=== PATIENT | male | born 1960 | race Caucasian/White ===

== ENCOUNTER 2016-07-24 20:22 | Inpatient (IN) | payer BC ==
[~2016-07-24] VITALS: Ht 190.5 cm; Wt 120.1 kg
[2016-07-24 21:30] LABS: HEMATOCRIT 38.4 % (38.0-50.0); MCH 29.4 PG (29.0-34.0); MCHC 34.1 G/DL (30.0-36.0); MCV 86.1 FL (86-99); MEAN PLAT.VOLUME 9.9 uM^3 (9.0-12.4); PLATELET COUNT 367 K/uL (156-360); RBC DIS.WIDTH-CV 13.8 % (11.8-14.6); RBC DIS.WIDTH-SD 42.6 % (39-53); RED BLOOD COUNT 4.46 M/uL (4.00-5.50); WHITE BLOOD COUNT 11.5 K/uL (4.1-10.2)
[2016-07-24 21:43] LABS: CHLORIDE 107 mEq/L (99-109); POTASSIUM 3.7 mEq/L (3.7-5.4); SODIUM 140 mEq/L (136-147)
[2016-07-24 21:45] LABS: GLUCOSE 155 mg/dL (70-99)
[2016-07-24 21:46] LABS: ANION GAP 11 MEQ/L (2-14)
[2016-07-24 21:49] LABS: GFR ESTIMATE (CALCULATED) > 59 mL/min/; UREA NITROGEN (BUN) 23 mg/dL (9-23)
[2016-07-24 21:52] LABS: TROP-I INTERPRETATION NEGATIVE; TROPONIN-I 0.28 ng/mL (0.0-0.30)
[2016-07-24] MEDS ORDERED: ALEVE220 MG PO (22:23)
[2016-07-24] MEDS ORDERED: GLIMEPIRIDE2 MG PO (22:23)
[2016-07-24] MEDS ORDERED: ATORVASTATIN CA20 MG PO (22:23)
[2016-07-24] MEDS ORDERED: LISINOPRIL20 MG PO (22:23)
[2016-07-24] MEDS ORDERED: METFORMIN HCL1000 MG PO (22:23)
[2016-07-24] MEDS ORDERED: PRILOSEC OTC20 MG PO (22:24)
[2016-07-24] MEDS ORDERED: CENTRUM SILVER1 EAC3 PO (22:24)
[2016-07-25 01:11] VITALS: BP 139/99
[2016-07-25 03:58] LABS: TROP-I INTERPRETATION NEGATIVE; TROPONIN-I 0.29 ng/mL (0.0-0.30)
[2016-07-25 04:44] VITALS: BP 133/78
[2016-07-25 10:04] LABS: TROP-I INTERPRETATION INDETERMINATE; TROPONIN-I 0.43 ng/mL (0.0-0.30)
[2016-07-25 14:54] LABS: POINT-OF-CARE METER ID UU13113819
[2016-07-25 16:47] VITALS: BP 147/86
[2016-07-25 19:26] VITALS: BP 140/87
[2016-07-25 23:19] VITALS: BP 148/88
[2016-07-26 03:29] VITALS: BP 136/96
[2016-07-26 07:30] VITALS: BP 145/93
[2016-07-26 08:21] LABS: HEMATOCRIT 40.7 % (38.0-50.0); MCH 29.9 PG (29.0-34.0); MCHC 34.4 G/DL (30.0-36.0); MEAN PLAT.VOLUME 10.3 uM^3 (9.0-12.4); PLATELET COUNT 338 K/uL (156-360); RBC DIS.WIDTH-CV 13.9 % (11.8-14.6); RBC DIS.WIDTH-SD 43.8 % (39-53); RED BLOOD COUNT 4.68 M/uL (4.00-5.50)
[2016-07-26 08:41] LABS: ANION GAP 9 MEQ/L (2-14); CHLORIDE 103 MEQ/L (99-109); POTASSIUM 4.4 MEQ/L (3.7-5.4); SAMPLE HEMOLYSIS CHECK 1; SAMPLE ICTERIC CHECK 0; SAMPLE LIPEMIA CHECK 0; SODIUM 140 MEQ/L (136-147)
[2016-07-26 08:47] LABS: GFR ESTIMATE (CALCULATED) > 59 mL/min/; UREA NITROGEN (BUN) 13 mg/dL (9-23)
[2016-07-26 08:50] LABS: GLUCOSE 108 mg/dL (70-99)
[2016-07-26] MEDS ORDERED: LOPRESSOR25 MG PO (09:18)
[2016-07-26] MEDS ORDERED: CLOPIDOGREL75 MG PO (09:18)
[2016-07-26] MEDS ORDERED: ASPIR 8181 M1 PO (09:19)
== END 2016-07-26 10:51 | disposition home or self-care (01) | DRG 247 ==
LOC: RME 20:22 → EME 20:22 → EDOF 22:41 → 5WEST 22:41 → EDOF 22:41 → 5WEST 23:25 → 4EAST 07-25 16:34
PROVIDERS: Internal Medicine; Physician Assistant; Physician Assistant Medical
DX: I21.4 Non-ST elevation (NSTEMI) myocardial infarction (principal); I25.10 Atherosclerotic heart disease of native coronary artery without angina pectoris; I10 Essential (primary) hypertension; E11.9 Type 2 diabetes mellitus without complications; E78.5 Hyperlipidemia, unspecified; E78.00 Pure hypercholesterolemia, unspecified; E66.9 Obesity, unspecified; Z68.32 Body mass index [BMI] 32.0-32.9, adult; F12.10 Cannabis abuse, uncomplicated; Z87.891 Personal history of nicotine dependence; Z85.820 Personal history of malignant melanoma of skin; Z85.07 Personal history of malignant neoplasm of pancreas; Z79.84 Long term (current) use of oral hypoglycemic drugs; Z98.890 Other specified postprocedural states
CPT/HCPCS: 71020; 80048; 82948; 84484; 85027; 85347; 93005; 93306; 99281; 99285; C1725; C1769; C1874; C1887; G0378; J1644; J1650; J1815; J2250; J3010; J3246; J7030; J7050

== ENCOUNTER 2017-08-26 19:42 | Inpatient (IN) | payer BC ==
[~2017-08-26] VITALS: Ht 190.5 cm; Wt 122.2 kg
[~2017-08-26 19:42] MED LIST: ALEVE220 MG PO; ASPIR 8181 M1 PO; ATORVASTATIN CA20 MG PO; CENTRUM SILVER1 EAC3 PO; CLOPIDOGREL75 MG PO; GLIMEPIRIDE2 MG PO; LISINOPRIL10 MG PO; LOPRESSOR25 MG PO; METFORMIN HCL1000 MG PO; PRILOSEC OTC20 MG PO
[2017-08-26 23:12] LABS: HEMATOCRIT 36.3 % (38.0-50.0); HEMOGLOBIN 12.3 G/DL (12.5-16.6); MCH 28.5 PG (29.0-34.0); MCHC 33.9 G/DL (30.0-36.0); MCV 84.2 FL (86-99); PLATELET COUNT 462 K/uL (156-360); RBC DIS.WIDTH-CV 13.8 % (11.8-14.6); RBC DIS.WIDTH-SD 42.8 % (39-53); RED BLOOD COUNT 4.31 M/uL (4.00-5.50); WHITE BLOOD COUNT 19.5 K/uL (4.1-10.2)
[2017-08-26 23:23] LABS: ALBUMIN 3.5 g/dL (3.2-4.8); CHLORIDE 96 mEq/L (99-109)
[2017-08-26 23:24] LABS: POTASSIUM 3.6 mEq/L (3.7-5.4); SODIUM 135 mEq/L (136-147)
[2017-08-26 23:26] LABS: GLUCOSE 182 mg/dL (70-99)
[2017-08-26 23:28] LABS: TOTAL BILIRUBIN 0.3 mg/dL (0.0-1.0)
[2017-08-26 23:29] LABS: ALKALINE PHOSPHATASE 164 IU/L (3-129); CREATININE 0.7 mg/dL (0.6-1.3); GFR ESTIMATE (CALCULATED) > 59 mL/min/ (58.99-99999)
[2017-08-26 23:31] LABS: AST (GOT) 34 IU/L (2-34); UREA NITROGEN (BUN) 14 mg/dL (9-23)
[2017-08-26 23:32] LABS: ALT (GPT) 70 IU/L (3-49)
[2017-08-26 23:33] LABS: LIPASE 64 U/L (1.0-51.0)
[2017-08-27] MEDS ORDERED: ADULT ASPIRIN R81 MG PO (01:48)
[2017-08-27] MEDS ORDERED: PLAVIX75 MG PO (01:48)
[2017-08-27 01:52] LABS: AMYLASE 46 IU/L (1-118)
[2017-08-27 03:16] VITALS: BP 139/87
[2017-08-27 07:43] VITALS: BP 139/90
[2017-08-27 09:37] LABS: HEMATOCRIT 35.5 % (38.0-50.0); HEMOGLOBIN 12.2 G/DL (12.5-16.6); MCH 28.8 PG (29.0-34.0); MCHC 34.4 G/DL (30.0-36.0); MCV 83.9 FL (86-99); PLATELET COUNT 404 K/uL (156-360); RED BLOOD COUNT 4.23 M/uL (4.00-5.50); WHITE BLOOD COUNT 19.3 K/uL (4.1-10.2)
[2017-08-27 09:38] LABS: HEMOGLOBIN A1c (GLYCOHEMOGLOB) 6.4 % (Below 5.7)
[2017-08-27 10:44] LABS: ALBUMIN 3.2 G/DL (3.2-4.8); ALKALINE PHOSPHATASE 125 IU/L (3-129); ALT (GPT) 47 IU/L (3-49); AST (GOT) 21 IU/L (2-34); CHLORIDE 101 MEQ/L (99-109); CREATININE 0.6 MG/DL (0.6-1.3); GFR ESTIMATE (CALCULATED) > 59 mL/min/ (58.99-99999); GLUCOSE 143 mg/dL (70-99); POTASSIUM 3.9 MEQ/L (3.7-5.4); SODIUM 138 MEQ/L (136-147); TOTAL BILIRUBIN 0.5 MG/DL (0.0-1.0); TOTAL PROTEIN 5.4 G/DL (6.4-8.3); UREA NITROGEN (BUN) 10 mg/dL (9-23)
[2017-08-27 11:48] VITALS: BP 139/89
[2017-08-27 15:19] VITALS: BP 141/88
[2017-08-27 20:15] VITALS: BP 156/88
[2017-08-28 00:42] VITALS: BP 146/83
[2017-08-28 06:04] LABS: HEMATOCRIT 35.8 % (38.0-50.0); HEMOGLOBIN 11.5 G/DL (12.5-16.6); MCH 27.5 PG (29.0-34.0); MCHC 32.1 G/DL (30.0-36.0); MCV 85.6 FL (86-99); PLATELET COUNT 458 K/uL (156-360); RBC DIS.WIDTH-CV 14.1 % (11.8-14.6); RED BLOOD COUNT 4.18 M/uL (4.00-5.50); WHITE BLOOD COUNT 18.7 K/uL (4.1-10.2)
[2017-08-28 06:12] LABS: CREATININE 0.8 MG/DL (0.6-1.3); GFR ESTIMATE (CALCULATED) > 59 mL/min/ (58.99-99999); UREA NITROGEN (BUN) 8 mg/dL (9-23)
[2017-08-28 06:14] LABS: ALBUMIN 3.3 G/DL (3.2-4.8); ALKALINE PHOSPHATASE 115 IU/L (3-129); ALT (GPT) 39 IU/L (3-49); AST (GOT) 16 IU/L (2-34); CHLORIDE 100 MEQ/L (99-109); CREATININE 0.8 MG/DL (0.6-1.3); GFR ESTIMATE (CALCULATED) > 59 mL/min/ (58.99-99999); GLUCOSE 150 mg/dL (70-99); POTASSIUM 3.9 MEQ/L (3.7-5.4); SODIUM 137 MEQ/L (136-147); TOTAL BILIRUBIN 0.5 MG/DL (0.0-1.0); UREA NITROGEN (BUN) 9 mg/dL (9-23)
[2017-08-28 06:20] LABS: TOTAL PROTEIN 6.3 G/DL (6.4-8.3)
[2017-08-28 09:09] VITALS: BP 180/93
[2017-08-28 09:22] VITALS: BP 168/62
[2017-08-28 15:26] LABS: APPEARANCE CLEAR ((CLEAR)); BILIRUBIN NEGATIVE; BLOOD MODERATE; COLOR YELLOW ((YELLOW)); GLUCOSE (STRIP) 50; KETONES NEGATIVE; LEUKOCYTES NEGATIVE; NITRITE NEGATIVE; PROTEIN (STRIP) NEGATIVE
[2017-08-28 15:31] LABS: BACTERIA RARE /HPF; EPITHELIAL CELLS NONE SEEN /HPF; MUCUS TRACE /LPF; WHITE BLOOD CELLS 0-5 /HPF (0-5)
[2017-08-28 15:33] VITALS: BP 162/99
[2017-08-28 15:36] VITALS: BP 164/78
[2017-08-28 23:15] VITALS: BP 124/84
[2017-08-29 06:10] LABS: HEMATOCRIT 36.3 % (38.0-50.0); MCH 28.2 PG (29.0-34.0); MCHC 33.1 G/DL (30.0-36.0); MCV 85.4 FL (86-99); PLATELET COUNT 485 K/uL (156-360); RBC DIS.WIDTH-CV 14.1 % (11.8-14.6); RBC DIS.WIDTH-SD 43.9 % (39-53); RED BLOOD COUNT 4.25 M/uL (4.00-5.50)
[2017-08-29 06:37] LABS: ALBUMIN 3.3 G/DL (3.2-4.8); ALKALINE PHOSPHATASE 129 IU/L (3-129); ALT (GPT) 42 IU/L (3-49); AST (GOT) 19 IU/L (2-34); CHLORIDE 101 MEQ/L (99-109); CREATININE 0.7 MG/DL (0.6-1.3); GFR ESTIMATE (CALCULATED) > 59 mL/min/ (58.99-99999); GLUCOSE 165 mg/dL (70-99); IRON 34 MCG/DL (35-150); POTASSIUM 4.2 MEQ/L (3.7-5.4); SODIUM 139 MEQ/L (136-147); TOTAL BILIRUBIN 0.4 MG/DL (0.0-1.0); TOTAL PROTEIN 5.9 G/DL (6.4-8.3); TRANSFERRIN (TIBC) 206.5 mg/dL (215-380); TRANSFERRIN SATUR. 16 % (20-55); UREA NITROGEN (BUN) 8 mg/dL (9-23)
[2017-08-29 08:17] VITALS: BP 153/97
[2017-08-29] MEDS ORDERED: FERROUS SULFAT325 MG PO (08:36)
== END 2017-08-29 10:43 | disposition home or self-care (01) | DRG 440 ==
LOC: EME 19:42 → EDOF 08-27 01:10 → 3EAST 08-27 01:10 → ENRESERV 08-27 01:15 → 3EAST 08-27 02:40
PROVIDERS: Hospitalist; Internal Medicine; Nurse Practitioner Family; Physician Assistant
DX: K85.90 Acute pancreatitis without necrosis or infection, unspecified (principal); K86.9 Disease of pancreas, unspecified; E11.9 Type 2 diabetes mellitus without complications; I10 Essential (primary) hypertension; I25.10 Atherosclerotic heart disease of native coronary artery without angina pectoris; E78.5 Hyperlipidemia, unspecified; D50.9 Iron deficiency anemia, unspecified; K21.9 Gastro-esophageal reflux disease without esophagitis; F17.200 Nicotine dependence, unspecified, uncomplicated; E66.9 Obesity, unspecified; Z68.33 Body mass index [BMI] 33.0-33.9, adult; Z79.84 Long term (current) use of oral hypoglycemic drugs; Z79.82 Long term (current) use of aspirin; Z79.02 Long term (current) use of antithrombotics/antiplatelets; Z95.5 Presence of coronary angioplasty implant and graft; Z85.07 Personal history of malignant neoplasm of pancreas; Z85.820 Personal history of malignant melanoma of skin
CPT/HCPCS: 71046; 74177; 74183; 76705; 80053; 81003; 82150; 82272; 82565; 82948; 83036; 83540; 83690; 84466; 84520; 85027; 99281; 99284; J2270; J2405; J3010; J7030

== ENCOUNTER → 2017-09-24 | Outpatient (CLI) | payer BC ==
[~2017-09-24] VITALS: Ht 190.5 cm; Wt 117.9 kg
[~2017-09-24] MED LIST changes: +ADULT ASPIRIN R81 MG PO; +FEOSOL325 MG PO; +FERROUS SULFAT325 MG PO; +PLAVIX75 MG PO
== END | disposition home or self-care (01) ==
LOC: AMB 10:21
PROVIDERS: Internal Medicine Gastroenterology
PROC: 0FBG8ZX Excision of Pancreas, Via Natural or Artificial Opening Endoscopic, Diagnostic (ICD-10-PCS; principal; 2017-09-24)
DX: K86.9 Disease of pancreas, unspecified (principal); C43.9 Malignant melanoma of skin, unspecified; I25.118 Atherosclerotic heart disease of native coronary artery with other forms of angina pectoris; E11.9 Type 2 diabetes mellitus without complications; Z79.84 Long term (current) use of oral hypoglycemic drugs; E78.4 Other hyperlipidemia; I10 Essential (primary) hypertension; E66.9 Obesity, unspecified; Z68.32 Body mass index [BMI] 32.0-32.9, adult; G47.30 Sleep apnea, unspecified; Z79.82 Long term (current) use of aspirin
CPT/HCPCS: 82948; 88305; J2405